=== PATIENT | female | born 1990 | race Caucasian/White ===

== ENCOUNTER 2025-08-05 18:07 | Emergency (ER) | payer BC, MEDICAID, SELFPAY ==
--- OUTSIDE RECORDS SUMMARY | 2025-08-05 18:14 | XMS_ITS | Patient Health Record ---
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 need s pap and pelvic as well. Diagnosis 1 Inability to conceiv e, female (N97.9) [email or web address] Referring Provider First Name Sejal Referring Provider Last Name Referring Provider Speciality [facility] icine Referred Provider [facility] General Notes Criselda Luna 2023 02:12:45 PM >Ins card attached.Cheryl Wendy 09/27/2024 02:13:57 PM >Referral faxed.Cheryl Wendy 10/09/2024 01:37:31 PM >Rec'd fax from [facility] verifying appt 11/07/24 at 1:15 pm. Pt notified of appt by their clinic. Referral Priority Routine Referral Appointment Date 11/07/2024 Medications Medication SIG (Take, Route, Frequency, Duration) Notes Start Date End Date Status Ibuprofen 800 mg TAKE ONE TABLET BY MOUTH EVERY 8 HOURS NEEDED TAKE WITH FOOD OR MILK; Duration: 10 Active EPINEPHrine 0.3 MG/0.3ML as directed Injection as directed for severe allergic reaction. Must call 911 if injection is administered. 05/15/2025 Active hydrOXYzine HCl 25 MG 1/2-1tablet Orally every 6 hrs as needed for panic/anxiety; Duration: 10 days 03/09/2023 Not-Taking Ventolin HFA 108 (90 Base) MCG/ACT 2 puff as needed for cough or congestion Inhalation every 4 hrs 01/31/2023 Active PROzac 10 MG 1 capsule Orally Once a day; Duration: 30 days 03/09/2023 Not-Taking Benzonatate 200 mg TAKE ONE CAPSULE BY MOUTH THREE TIMES DAILY FOR 10 DAYS; Duration: 10 days 08/01/2025 08/11/2025 Active Advair Diskus 100-50 MCG/ACT INHALE 1 PUFF BY MOUTH TWICE DAILY FOR 30 DAYS; Duration: 30 Active predniSONE 20 MG 1 tablet Orally Once a day; Duration: 5 01/31/2023 Not-Taking Azithromycin 250 MG TAKE 2 TABLETS BY MOUTH ON DAY ONE THEN TAKE 1 TABLET DAILY FOR 4 DAYS Oral; Duration: 5 Days Active Varenicline Tartrate (Starter) 0.5 MG X 11 & 1 MG X 42 as directed Orally first month 08/15/2024 Not-Taking Zithromax Z-Lamine 250 MG 2 tablet on the first day, then 1 tablet daily for 4 days Orally daily; Duration: 5 01/31/2023 Not-Taking Budesonide 0.5 MG/2ML inhale THE contents of one vial into lungs using nebulizer TWICE DAILY Inhalation; Duration: 15 Days Active Albuterol Sulfate (2.5 MG/3ML) 0.083% 3MLas needed Inhalation every 6 hrs Active Social History Sex Assigned At : Social History Observation Description Sex Assigned At Female Section Notes: smokes marijuana and cigs Problems Problem Type SNOMED Code ICD Code Onset Dates Problem Status W/U Status Risk Notes Problem Exacerbation of intermittent asthma (302610847) Mild intermittent asthma with exacerbation (J45.21) Active confirmed Problem Migraine (45774560) Migraine without status migrainosus, not intractable, unspecified migraine type (G43.909) Active confirmed Problem Smoker (95879933) Smoker (F17.200) Active confirmed Problem Bipolar disorder (90198645) Bipolar affective disorder, remission status unspecified (F31.9) Active confirmed Problem Drug allergy (274303852) History of allergic reaction (Z88.9) Active confirmed Vital Signs Heart Rate 83 /min 08/05/2025 Temperature 98.0 degrees Fahrenheit 08/05/2025 Height-cm 153.67 cm 08/05/2025 Blood pressure diastolic 74 mm Hg 08/05/2025 Oximetry 97 % 08/05/2025 Weight-kg 67.59 kg 08/05/2025 Height 60.5 in 08/05/2025 Blood pressure systolic 136 mm Hg 08/05/2025 Weight 149.0 lbs 08/05/2025 BMI 28.62 kg/m2 08/05/2025 Encounters Encounter Location Date Provider Diagnosis [facility] [address] [place] [phone] 08/05/2025 Sejal Moore [facility] [address] [place] [phone] 08/15/2024 Sejal Moore Mild intermittent asthma with exacerbation J45.21 and Smoker F17.[address] [phone] 09/27/2024 Sejal Mild intermittent asthma with exacerbation J45.21 ; Smoker F17.200 ; Migraine without status migrainosus, not intractable, unspecified migraine type G43.909 and Inability to conceive, female N97.9 [facility] [address] [place] [phone] 11/09/2024 Sejal [place] Mild intermittent asthma with exacerbation J45.21 and COVID U07.1 [facility] [address] [place] [phone] 05/15/2025 Sejal Moore History of allergic reaction Z88.9 [facility] [address] [place] [phone] 11/12/2024 Sejal Moore [facility] [address] [place] [phone] 08/01/2025 Sejal Moore Assessments Encounter Date Diagnosis (ICD Code) Assessment Notes Treatment Notes Treatment Clinical Notes Section Notes 08/15/2024 Mild intermittent asthma with exacerbation (ICD-10 - J45.21) pt req rx for tessalon perles 08/15/2024 Smoker (ICD-10 - F17.200) 09/27/2024 Mild intermittent asthma with exacerbation (ICD-10 - J45.21) 09/27/2024 Smoker (ICD-10 - F17.200) 11/09/2024 COVID (ICD-10 - U07.1) 11/09/2024 Mild intermittent asthma with exacerbation (ICD-10 - J45.21) Monitor symptoms closely. Return to clinic if not improving or if worsening. 05/15/2025 History of allergic reaction (ICD-10 - Z88.9) 09/27/2024 Migraine without status migrainosus, not intractable, unspecified migraine type (ICD-10 - G43.909) 09/27/2024 Inability to conceive, female (ICD-10 - N97.9) 08/15/2024 Other Varenicline Oral Tablet (VARENICLINE - ORAL) material was printed 09/27/2024 Other Ibuprofen Oral Tablet (IBUPROFEN - ORAL) material was printed Plan Of Treatment No Information Insurance Providers Payer Name Payer Address Payer Phone Subscriber Number Group Number Insured Name Patient Relationship to Insured Coverage Start Date Coverage End Date [facility] [address] [address] [place], [place] [phone] [id number] Hess, Yeni Self - patient is the insured 3 Medical (General) History Medical History History ICD Code Bipolar PTSD asthma (exercise induced)
[2025-08-05 18:17] VITALS: BP 137/93; PULSE 75; TEMP 36.7; O2SAT 98
--- NOTE | 2025-08-05 18:26 | ECG_ITS ---
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 Measurements Intervals [place] Rate: 62 P: 69 ID: [id number] QRS: 30 QRSD: 89 T: 60 QT: 370 QTc: 377 Interpretive Statements SINUS RHYTHM No previous ECG available for comparison Electronically Signed On 08-07-2025 20:54:39 CDT by Shady Millan M.D. [email or web address] [id number]
--- NOTE | 2025-08-05 18:27 | XRR_ITS ---
PROCEDURE INFORMATION: Exam: XR Chest Exam date and time: 08/05/2025 6:41 PM Age: 34 years old Clinical indication: Cough; Additional info: Cough/congestion TECHNIQUE: Imaging protocol: Radiologic exam of the chest. 368 image(s) are submitted. Views: 1 view. COMPARISON: No relevant prior studies available. FINDINGS: Lungs: Unremarkable. No consolidation. Pleural spaces: Unremarkable. No pleural effusion. No pneumothorax. Heart/Mediastinum: Unremarkable. No cardiomegaly. Bones/joints: Unremarkable. XR/XR chest 1V portable [id number] IMPRESSION: No acute findings.
--- NOTE | 2025-08-05 19:46 | W.ED.RECABL ---
HPI - Recheck/Abnormal Lab/Rx General: Chief Complaint: Recheck/Abnormal Lab/Rx Stated Complaint: Dr. Izquierdo Time Seen by Provider: 08/05/25 19:05 History of Present Illness: Patient is 34-year-old female with history of chronic bronchitis presents to the emergency room with a 3 of nonproductive cough, chest congestion. She was prescribed prednisone by her doctor, and ibuprofen, albuterol inhaler, and also has albuterol nebulized, formoterol, and budesonide for her nebulizer. She states she has a nonproductive cough. She does have shortness of breath. Upper respiratory symptoms are present. Some chest tightness as well. Related Data Home Medications ?Medication ?Instructions ?Recorded ?Confirmed albuterol sulfate 90 mcg/actuation 2 puff inhalation Q6H PRN 01/18/25 01/18/25 aerosol inhaler (Ventolin HFA) fluticasone 100 mcg-salmeterol 50 1 inh inhalation BID 01/18/25 01/18/25 mcg/dose blistr powdr for inhalation (Advair Diskus) ibuprofen 800 mg tablet 800 mg PO TID 01/18/25 01/18/25 varenicline tartrate 1 mg tablet 1 mg PO BID 01/18/25 01/18/25 (Chantix) Allergies Allergy/AdvReac Type Severity Reaction Status Date / Time diphenhydramine (From Allergy Unknown Verified 08/05/25 18:23 Benadryl) artificial strawberry Allergy Unknown Unknown Uncoded 08/05/25 18:23 Review of Systems General: Reports: 10 or more systems reviewed and unremarkable except in HPI and below Const: Denies: fever(s) or chills Eyes: Denies: change in vision or blurry vision ENMT: Denies: throat pain or uvular edema Card: Reports: chest pain (tightness); Denies: palpitations Resp: Reports: dyspnea, non-productive cough, pain on inspiration and chest congestion GI: Denies: abdominal pain or nausea : Denies: flank pain, difficulty voiding or urinary frequency Musc: Denies: neck pain, back pain or extremity pain Skin/Breast: Denies: rash or pruritus Neuro: Denies: headache(s) or numbness in extremities Psych: Denies: anxiety or depression Endo: Denies: polyuria [place]/Lymph: Denies: easy bruising or easy bleeding All/Imm: Denies: urticaria or throat swelling PFSH ED PFSH: Family History (Updated 01/18/25 @ 10:00 by Claribel Seymour CMA) Grandmother Breast cancer Heart disease Diabetes Denies family history of Colon cancer Ovarian cancer Hyperlipidemia Hypertension Uterine cancer Thyroid disease Stroke Social History Smoking and tobacco/nicotine status: current every day tobacco/nicotine user Physical Exam Const: COMMON NORMALS: no acute distress, average body habitus and patient oriented x3 HENMT: THROAT: no uvular edema Eye: COMMON NORMALS: Equal, round and reactive pupils present and EOMs intact bilaterally PUPIL: Yes Equal, round and reactive pupils present Neck/C-Spine: COMMON NORMALS: full ROM and no lymphadenopathy Lymph: LYMPHATIC: no lymphadenopathy noted Chest: COMMONS NORMALS: normal inspection of the chest and normal palpation of entire chest wall Resp: AUSCULTATION: no crackles, no rhonchi, no wheezes and bronchial breath sounds diffuse Cardio: COMMON NORMALS: regular rate and regular rhythm RATE: regular rate RHYTHM: regular rhythm GI: COMMON NORMALS: Normal to inspection, nondistended, normoactive bowel sounds present, Soft to palpation and non-tender PALPATION: Yes Soft to palpation : COMMON NORMALS: Yes no CVA tenderness BLADDER/KIDNEY EXAM: Yes no CVA tenderness Back/Pelvis: COMMON NORMALS: no CVA tenderness Extremity: COMMON NORMALS: normal to inspection, full ROM and capillary refill normal Neuro: COMMON NORMALS: patient oriented x3 Psych: COMMON NORMALS: mental status grossly normal and Normal thought process present THOUGHT PROCESS: Normal thought process present Skin: COMMON NORMALS: no rashes or lesions noted GENERAL SKIN EXAM: no rashes or lesions noted Course Vital Signs: Vital signs: Vital Signs Temperature 98.1 F 08/05/25 18:17 Pulse Rate 64 08/05/25 21:23 Blood Pressure 129/74 08/05/25 21:23 Pulse Oximetry 97 08/05/25 21:23 Oxygen Delivery Me thod Room Air 08/05/25 19:57 MDM - Recheck/Abnormal Lab/Rx Medical Decision Making Patient is 34-year-old female with 3 days of URI, bronchitis symptoms. This is consistent with viral. She can continue her antibiotics from her primary care physician with her history of secondary infection and concern of secondary infection, as well as a prednisone. Given her mild shortness of breath, bronchial breath sounds however completely clear and present, I will give her dexamethasone IM x 1 and have her follow-up with the primary care before the end of the week for reevaluation. Lab Data Radiology Impressions Chest X-Ray 08/05/25 18:27 IMPRESSION: No acute findings. XR interpretation done by ED provider, pending radiology final review EKG Data EKG 1: Interpretation: Normal sinus rhythm, normal axis Discharge Plan Discharge Patient Disposition: Home Clinical Impression: Bronchitis RAD (reactive airway disease) Qualifiers: Asthma severity: mild Asthma persistence: intermittent Asthma complication type: with acute exacerbation Qualified Code(s): J45.21 - Mild intermittent asthma with (acute) exacerbation Condition: Stable Prescriptions: No Action varenicline tartrate [Chantix] 1 mg tablet 1 mg PO BID albuterol sulfate [Ventolin HFA] 90 mcg/actuation HFA aerosol inhaler 2 puff inhalation Q6H PRN fluticasone propion-salmeterol [Advair Diskus] 100-50 mcg/dose blister with device 1 inh inhalation BID ibuprofen 800 mg tablet 800 mg PO TID Discharge Orders: Discharge ED (Routine); Ordered 08/05/25 Ordered By: Miladys Rosenberg Referrals: Avinash Rose [Family Provider, Physicians Rn Field Case Manager] Sejal Moore FNP [Primary Care Provider, Family Practice] Patient Instructions: Acute Bronchitis (ED) Activity Restrictions/Additional Instructions: Continue medications as previously prescribed as directed. You received a shot of dexamethasone today in the emergency room. Your EKG was normal. As discussed, follow-up with your doctor before the end of the week/weekend to reevaluate your breath sounds. Return to ED if you have worsening shortness of breath, difficulty speaking sentences, or fever greater than 101 ?F. Stand Alone Forms: Work/School Release Print Language: [place] Coding Level of Care Code ED Administrative Assistant Office Manager for Teresita Coulter
[2025-08-05 19:57] VITALS: BP 139/82; PULSE 67; O2SAT 97
[2025-08-05 21:23] VITALS: BP 129/74; PULSE 64; O2SAT 97
== END 2025-08-05 20:45 | disposition home or self-care (01) ==
PROVIDERS: Emergency Provider Physician Assistant; Family Provider Physician Assistant; PCP Nurse Practitioner
DX: J45.21 Mild intermittent asthma with (acute) exacerbation (principal); J40 Bronchitis, not specified as acute or chronic; Z72.0 Tobacco use
CPT/HCPCS: 71045; 93005; 96372; 99284; J1100